=== PATIENT | male | born 1980 ===

== ENCOUNTER 2017-12-16 08:29 | Emergency (ER) | payer BC ==
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
[2017-12-16 08:57] VITALS: RESP 18; BMI 31.1
[2017-12-16 09:32] VITALS: BP 136/79; PULSE 78; TEMP 98; O2SAT 98
== END 2017-12-16 09:30 | disposition home or self-care (01) ==
LOC: C.ER 08:29
DX: F43.10 Post-traumatic stress disorder, unspecified (principal)